=== PATIENT | female | born 1990 | race Caucasian/White ===

== ENCOUNTER 2016-05-17 09:37 | Emergency (ER) | payer BC, MEDICAID ==
[~2016-05-17] VITALS: Ht 160 cm; Wt 73.0 kg
[~2016-05-17 09:37] MED LIST: CEPH500C3 PO; METR-1 PO
[2016-05-17 09:42] VITALS: BP 104/60; PULSE 84; RESP 12; TEMP 97.8; O2SAT 97
[2016-05-17] MEDS ORDERED: LOPE7.5C PO (10:47)
--- NOTE | 2016-05-17 10:47 | PD ---
HPI Chief Complaint: GI Complaint Time Seen by Provider: 10:39 Travel History International Travel<30 days: No Contact w/Intl Traveler<30days: No Traveled to known affect area: No History of Present Illness HPI Healthy 25-year-old female approximately 23 weeks' gestational age here with complaint of diarrhea. States multiple sick contacts ill with similar diarrheal complaints. She has had 5 episodes of loose stool for the last 24 hours. Patient presents the ER today stating that work would not allow her to work until she got a work note. She does not have any nausea or vomiting. Notes mild crampy pain noted. No vaginal bleeding or discharge. No cramps. PFSH Past Medical History Hx Anticoagulant Therapy: No Anemia: Yes Cardiovascular Problems: No Chemotherapy: No Cerebrovascular Accident: No Diabetes: No Diminished Hearing: No Respiratory: No ?: LMP: 12/17 : 2 Miscarriage: 1 : 1 Ovarian Cysts: Yes Past Surgical History Tonsillectomy: Yes Social History Alcohol Use: Yes (OCC) Tobacco Use: Yes (1/2 PACK DAY) Substance Use: No Allergies-Medications (Allergen,Severity, Reaction): Coded Allergies: No Known Allergies (Unverified , 01/09/16) Reported Meds & Prescriptions Reported Meds & Active Scripts Active Imodium A-D (Loperamide HCl) 2 Mg Cap 2 Mg PO Q6H PRN Flagyl (Metronidazole) 500 Mg Tab 4 Tab PO TODAY TAKE 4 TABS (2000 MG) PO TODAY Keflex (Cephalexin Monohydrate) 500 Mg Cap 500 Mg PO BID 10 Days Review of Systems Except as stated in HPI: all other systems reviewed are Neg Physical Exam Narrative GENERAL: Well-appearing female in no acute distress SKIN: Warm and dry. HEAD: Normocephalic. EYES: No scleral icterus. No injection or drainage. ENT: Mucous membranes pink and moist. NECK: Supple CARDIOVASCULAR: Regular rate and rhythm. RESPIRATORY: No accessory muscle use. GASTROINTESTINAL: Abdomen soft, non-tender, nondistended. MUSCULOSKELETAL: Normal gait NEUROLOGICAL: Awake and alert. Normal speech. PSYCHIATRIC: Appropriate mood and affect; insight and judgment normal. Data Data Last Documented VS Vital Signs Date Time Temp Pulse Resp B/P Pulse Ox O2 Delivery O2 Flow Rate FiO2 05/17/16 09:42 97.8 84 12 104/60 97 Room Air MDM Medical Decision Making Medical Screen Exam Complete: Yes Emergency Medical Condition: Yes Medical Record Reviewed: Yes Differential Diagnosis 25-year-old female approximately 23 weeks' gestational age here with complaint of diarrhea. Symptoms are consistent with acute diarrheal illness, gastroenteritis. Multiple sick contacts with similar symptoms. Benign abdominal examination she does not warrant labs or imaging. Narrative Course Patient reassured and discharged home with Imodium as needed. Encouraged to stop smoking tobacco. Diagnosis Primary Impression: Diarrhea Qualified Code: R19.7 - Diarrhea, unspecified type Additional Impression: Tobacco abuse Referrals: Primary Care Physician as needed Patient Instructions: Acute Diarrhea (ED), General Instructions Additional Instructions: Imodium as needed for diarrhea. Quit smoking. Med/Other Pt SpecificInfo: Prescription(s) given Scripts Loperamide (Imodium A-D)2 Mg Cap2 Mg PO Q6H PRN (DIARRHEA) #18 CAP Ref 0 Prov:Shanel Vo MD 05/17/16 Disposition: 01 DISCHARGE HOME Condition: Stable Shanel Vo MD May 17, 2016 10:47
== END 2016-05-17 11:09 | disposition home or self-care (01) ==
LOC: NETRI 09:37
DX: O99.612 Diseases of the digestive system complicating pregnancy, second trimester (principal); R19.7 Diarrhea, unspecified; O99.332 Smoking (tobacco) complicating pregnancy, second trimester; F17.200 Nicotine dependence, unspecified, uncomplicated; Z3A.23 23 weeks gestation of pregnancy
CPT/HCPCS: 99283

== ENCOUNTER 2016-07-02 19:52 | Emergency (ER) | payer MEDICAID ==
[~2016-07-02] VITALS: Ht 160 cm; Wt 73.0 kg
[~2016-07-02 19:52] MED LIST changes: +LOPE7.5C PO
[2016-07-02 19:54] VITALS: BP 109/58; PULSE 94; RESP 16; TEMP 97.9; O2SAT 99
--- NOTE | 2016-07-02 22:10 | PD ---
HPI Chief Complaint: Eye Problems/Injury Time Seen by Provider: 22:03 Travel History International Travel<30 days: No Contact w/Intl Traveler<30days: No Traveled to known affect area: No History of Present Illness HPI 25-year-old white female 7/2 months presents to emergency department with complains of left eye discharge. She states that she saw her OB doctor last week ago she had some itching and burning of her left eye and she was concerned that she may have contacted pink eye. She was put on Polytrim ophthalmic drops. She states that soon after starting the drops she noticed redness in the eye and mucus formation. She states that she's been using the drops now for nearly a week and the symptoms have not improved but actually they've worsened. She states that she did not have any drainage initially but now she has mucus in matting. In the last 1-2 days she's also developed some runny nose , congestion, cough and general malaise. She denies any fever or chills. No nausea vomiting. No abdominal pain. No leakage of fluid or vaginal bleeding. She states that she's had normal movement. She's been eating and drinking normally. She does not wear contacts or glasses. PFSH Past Medical History Hx Anticoagulant Therapy: No Anemia: Yes Cardiovascular Problems: No Chemotherapy: No Cerebrovascular Accident: No Diabetes: No Diminished Hearing: No Respiratory: No : 2 Miscarriage: 1 : 1 Ovarian Cysts: Yes Past Surgical History Tonsillectomy: Yes Social History Alcohol Use: Yes (OCC) Tobacco Use: Yes (1/2 PACK DAY) Substance Use: No Allergies-Medications (Allergen,Severity, Reaction): Coded Allergies: No Known Allergies (Unverified , 07/02/16) Reported Meds & Prescriptions Reported Meds & Active Scripts Active Imodium A-D (Loperamide HCl) 2 Mg Cap 2 Mg PO Q6H PRN Flagyl (Metronidazole) 500 Mg Tab 4 Tab PO TODAY TAKE 4 TABS (2000 MG) PO TODAY Keflex (Cephalexin Monohydrate) 500 Mg Cap 500 Mg PO BID 10 Days Review of Systems Except as stated in HPI: all other systems reviewed are Neg General / Constitutional: No: Fever, Chills Eyes: Positive: Drainage, Redness, Tearing, No: Diploplia, Blurred Vision, Photophobia, Foreign Body Sensation, Pain, Visual changes HENT: Positive: Congestion, No: Headaches, Lightheadedness, Sore Throat Cardiovascular: No: Chest Pain or Discomfort Respiratory: Positive: Cough, No: Shortness of Breath Gastrointestinal: No: Nausea, Vomiting Genitourinary: No: Frequency, Dysuria Musculoskeletal: No: Edema, Pain Physical Exam Narrative GENERAL: Well-developed, well-nourished in no acute distress. Nontoxic appearing. HEAD: Normocephalic, atraumatic. EYES: Pupils equal round and reactive. Extraocular motions intact. No scleral icterus. No injection or drainage in the right eye. The left eye is injected nasally. She has mucoid drainage and crusting of the eyelashes. Lids are flipped and no foreign body seen. Cornea appears clear. ENT: TMs clear without erythema. The external auditory canals clear. Nose: clear . Posterior pharynx is pink and moist. No tonsillar edema or exudate. Uvula midline. Airway patent. NECK: Trachea midline.Supple, nontender, moves head freely. No central bony tenderness or spasm. CARDIOVASCULAR: Regular rate and rhythm without murmurs, gallops, or rubs. RESPIRATORY: Clear to auscultation. Breath sounds equal bilaterally. No wheezes , rales, or rhonchi. GASTROINTESTINAL: Abdomen soft, non-tender, gravid. Normal movement. EXTREMITIES: No clubbing, cyanosis, or edema. No joint tenderness, effusion, or edema noted. BACK: Nontender without deformity or crepitance. No flank tenderness. Data Data Last Documented VS Vital Signs Date Time Temp Pulse Resp B/P Pulse Ox O2 Delivery O2 Flow Rate FiO2 07/02/16 19:54 97.9 94 16 109/58 99 Room Air Orders Wound Culture And Gram Stain (07/02/16 22:00) [facility] Medical Decision Making Medical Screen Exam Complete: Yes Emergency Medical Condition: Yes Medical Record Reviewed: Yes Differential Diagnosis MDM: High Differential diagnoses: Acute conjunctivitis (bacterial, viral, allergic, traumatic), corneal abrasion, corneal ulcer Narrative Course A wound culture has been obtained from the left eye. Patient is encouraged to discontinue drops. She'll use warm compresses and wash the face with baby shampoo This is conjunctivitis-viral, URI, Diagnosis Primary Impression: Conjunctivitis, viral Additional Impressions: URI (upper respiratory infection) Qualified Code: J06.9 - Viral upper respiratory tract infection Qualified Code: Z3A.30 - 30 weeks gestation of Additional Instructions: Rest. Wash eyelashes with baby shampoo 3 times daily. Warm compresses. 25-50 mg of Benadryl every 6 hours as needed for congestion and eye irritation. Stop your eye drops. Followup with an eye doctor 48 hours Follow-up with a medical doctor 48 hours. Return to the ER if any problems. Med/Other Pt SpecificInfo: Med Stopped Disposition: 01 DISCHARGE HOME Condition: Stable Dio Juarez Jul 02, 2016 22:10
== END 2016-07-02 22:57 | disposition home or self-care (01) ==
LOC: NETRI 19:52
DX: O99.89 Other specified diseases and conditions complicating pregnancy, childbirth and the puerperium (principal); B30.9 Viral conjunctivitis, unspecified; J06.9 Acute upper respiratory infection, unspecified; R05 Cough; R53.81 Other malaise; F17.200 Nicotine dependence, unspecified, uncomplicated; Z86.2 Personal history of diseases of the blood and blood-forming organs and certain disorders involving the immune mechanism; Z3A.30 30 weeks gestation of pregnancy
CPT/HCPCS: 87070; 87205; 99283